=== PATIENT | female | born 1995 | race African-American/Black ===

== ENCOUNTER 2022-04-06 16:32 | Inpatient (IN) | payer OTHER, MEDICAID, SELFPAY ==
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
[2022-04-06 16:53] VITALS: BP 114/67; BP 132/78; PULSE 108; PULSE 115; RESP 18; TEMP 38.2; O2SAT 100; O2SAT 96; BMI 31.8
--- NOTE | 2022-04-06 17:08 | MHC.CARE ---
CARE Team spoke to N. Pt was seen in the community and made a bedsearch.
[2022-04-06] MEDS: Acetaminophen 325 MG TABLET 975 MG PO (18:00)
[2022-04-06] MEDS: Ondansetron ODT 4 MG TAB.RAPDIS TRANSLINGU (18:00)
[2022-04-06 18:04] LABS: MANUAL DIFF FLAG NO
[2022-04-06 18:08] LABS: Basophils Percent Auto 0.3 % (0-2); Eosinophils Absolute Auto 0.1 X10*3/uL (0.0-0.4); Hematocrit 34.2 % (37.0-47.0); Hemoglobin 11.1 g/dl (12.0-16.0); Imm Gran Abs Auto 0.02 X10*3/uL (0.00-0.03); Imm Gran Pct Auto 0.3 % (0.0-0.4); Lymphocytes Absolute Auto 0.6 X10*3/uL (1.2-4.9); Lymphocytes Percent Auto 7.6 % (20-40); Mean Corpuscular HGB Conc 32.5 g/dl (31.0-35.0); Mean Corpuscular Hemoglobin 25.9 pg (27.0-33.0); Mean Corpuscular Volume 79.9 fL (80.0-98.0); Mean Platelet Volume 10.4 fL (9.4-12.3); Monocytes Percent Auto 12.3 % (2-11); Neutrophils Absolute Auto 6.1 x10*3/uL (2.0-8.3); Neutrophils Percent Auto 78.5 % (45-73); Platelet Count 276 X10*3/uL (160-400); Red Blood Count 4.28 X10*6/uL (4.20-5.50); Red Cell Distribution Width 16.8 % (11.0-16.0); White Blood Count 7.8 X10*3/uL (4.8-10.8)
[2022-04-06 18:17] LABS: COVID-19 Test Positive (Negative); IDNOW Serial# 16C4AD1C
[2022-04-06 18:25] LABS: Acetaminophen LAB < 17 mcg/mL (<30); Alanine Aminotransferase 75 U/L (0-31); Albumin Level 3.7 g/dL (3.5-5.0); Alkaline Phosphatase 113 U/L (39-117); Anion Gap 13 (12-20); Aspartate Amino Transferase 34 U/L (5-31); Bilirubin Total 0.2 mg/dL (0.0-1.0); Blood Urea Nitrogen 9 mg/dL (9-16); Calcium 8.3 mg/dL (8.4-10.2); Carbon Dioxide 25 mmol/L (22-29); Chloride 100 mmol/L (96-108); Creatinine Clr Calc Pharmacy 140.2; Estimated Glomerular Filt Rate > 60; Ethanol < 10 mg/dL; Glucose Random 94 mg/dL (60-115); Potassium 4.1 mmol/L (3.3-5.1); Salicylate < 5.0 mg/dL (15-30); Sodium 134 mmol/L (135-145); Total Protein 6.3 g/dL (6.5-8.0)
[2022-04-06 21:56] LABS: Appearance Urine Cloudy; Color Urine Yellow; Glucose Urine UA Negative (Negative); Leukocyte Esterase Urine Trace (Negative); Nitrite Urine Negative (Negative); PH 8.5 (5.0-9.0); UMIC TRIGGER UACC YES; Urine Blood Negative (Negative); Urine Ketones Trace mg/dL (Negative); Urine Protein 30 (1+) mg/dL (Neg-Trace)
[2022-04-06 22:08] LABS: Amphetamine Screen Urine Not Detected (Not Detect); Barbiturates, Urine Not Detected (Not Detect); Benzodiazepines Screen Urine Not Detected (Not Detect); Cannabinoid Screen Urine POSITIVE (Not Detect); Cocaine Screen Urine POSITIVE (Not Detect); Fentanyl, urine POSITIVE (Not Detect); Opiate Screen Urine POSITIVE (Not Detect); Phencyclidine Screen Urine Not Detected (Not Detect)
[2022-04-06 22:13] LABS: Bacteria Urine 4+ (None Seen); Hyaline Casts Urine 0-2 /LPF (0-2); Squamous Epithelial Cell Urine >20 /HPF (0-2); WBC Urine 0-5 /HPF (0-5)
[2022-04-07 02:33] VITALS: BP 116/56; PULSE 84; RESP 16; TEMP 38.3; O2SAT 99
--- NOTE | 2022-04-07 07:25 | PC.NURSE ---
Report from Kenrick ZHOU, per report pt is an in-patient bedsearch. Currently pt appears to be sleeping, resp reg and even. NAD.
[2022-04-07 09:49] VITALS: BP 101/74; PULSE 89; TEMP 37.4; O2SAT 98
--- NOTE | 2022-04-07 10:14 | ECG_ITS ---
Test Reason : MEDICAL CLEARANCE Blood Pressure : / mmHG Vent. Rate : 090 BPM Atrial Rate : 090 BPM P-R Int : 130 ms QRS Dur : 080 ms QT Int : 346 ms P-R-T Axes : 057 057 064 degrees QTc Int : 423 ms Normal sinus rhythm Normal ECG No previous ECGs available Referred By: Nallely Peace Electronically Signed By:Andrew Lemus
--- NOTE | 2022-04-07 11:04 | PC.NURSE ---
Pt reports first covid test was while at the hospital this stay, states she has been experiencing GI upset, and fever/chills. Pt currently able to maintain compliance with isolation. Calm and cooperative.
--- NOTE | 2022-04-07 14:29 | PC.NURSE ---
Report given to Jomar ZHOU on the floor.
[2022-04-07 16:45] VITALS: BP 114/75; PULSE 81; RESP 16; TEMP 36.7; O2SAT 98
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
[2022-04-07] MEDS: Acetaminophen 325 MG TABLET 650 MG PO (20:51)
[2022-04-07] MEDS: traZODone HCL 50 MG TABLET PO (20:52)
[2022-04-07] MEDS: LORazepam 1 MG TABLET PO (20:52)
[2022-04-07] MEDS: hydrOXYzine HCL 25 MG TABLET PO (20:52)
[2022-04-07] MEDS: Dicyclomine HCl 10 MG CAPSULE PO (20:52)
[2022-04-07] MEDS: cloNIDine HCL 0.1 MG TABLET PO (20:52)
[2022-04-07 20:54] VITALS: BP 135/83; PULSE 94; TEMP 36.6; O2SAT 99
[2022-04-08 09:15] VITALS: BP 133/77; PULSE 77; RESP 18; TEMP 36.6; O2SAT 97
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
[2022-04-08 16:00] VITALS: PULSE 90
[2022-04-08] MEDS: LORazepam 1 MG TABLET PO ×2 (16:53→22:22)
[2022-04-08] MEDS: cloNIDine HCL 0.1 MG TABLET PO (16:53)
[2022-04-08 17:05] VITALS: BP 141/87; PULSE 90
[2022-04-08] MEDS: guaiFENesin DM 600/30 1 TAB TAB.ER.12H 2 TAB PO (20:20)
[2022-04-08] MEDS: Throat Lozenge, Medicated LOZENGE 1 LOZENGE MUCOUS MEM ×2 (20:20→22:22)
[2022-04-08] MEDS: Acetaminophen 325 MG TABLET 650 MG PO (20:20)
[2022-04-08] MEDS: Divalproex Sodium ER 500 MG TAB.ER.24H PO (21:14)
[2022-04-08] MEDS: traZODone HCL 50 MG TABLET PO ×2 (21:14→22:22)
[2022-04-08] MEDS: QUEtiapine Fumarate 400 MG TABLET PO (21:14)
[2022-04-08] MEDS: Ibuprofen 600 MG TABLET PO (21:15)
[2022-04-08 21:17] VITALS: BP 118/76; PULSE 89; TEMP 36.7; O2SAT 99
[2022-04-09 09:00] VITALS: BP 137/71; PULSE 81; RESP 18; TEMP 36.5; O2SAT 100
[2022-04-09] MEDS: Throat Lozenge, Medicated LOZENGE 1 LOZENGE MUCOUS MEM ×3 (09:03→21:11)
[2022-04-09] MEDS: guaiFENesin DM 600/30 1 TAB TAB.ER.12H 2 TAB PO ×2 (09:03→21:11)
[2022-04-09] MEDS: Ibuprofen 600 MG TABLET PO (09:04)
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
[2022-04-09] MEDS: Dicyclomine HCl 10 MG CAPSULE PO (12:01)
[2022-04-09] MEDS: LORazepam 1 MG TABLET PO (18:05)
[2022-04-09] MEDS: Divalproex Sodium ER 500 MG TAB.ER.24H PO (21:11)
[2022-04-09] MEDS: Acetaminophen 325 MG TABLET 650 MG PO (21:11)
[2022-04-09] MEDS: traZODone HCL 50 MG TABLET PO (21:11)
[2022-04-09] MEDS: QUEtiapine Fumarate 400 MG TABLET PO (21:11)
[2022-04-09 21:15] VITALS: PULSE 75
[2022-04-09 21:30] VITALS: BP 117/62; PULSE 75; RESP 16; TEMP 36.5; O2SAT 100
[2022-04-10 08:50] VITALS: BP 122/70; PULSE 76; RESP 18; TEMP 35.9; O2SAT 100
[2022-04-10 08:51] VITALS: PULSE 76
[2022-04-10] MEDS: Acetaminophen 325 MG TABLET 650 MG PO ×2 (09:00→20:50)
[2022-04-10] MEDS: guaiFENesin DM 600/30 1 TAB TAB.ER.12H 2 TAB PO ×2 (09:01→20:50)
[2022-04-10] MEDS: Nicotine 21 MG PATCH.TD24 TRANSDERMA (16:27)
[2022-04-10] MEDS: Nicotine Polacrilex 2 MG GUM 4 MG BUCCAL (16:27)
[2022-04-10] MEDS: LORazepam 1 MG TABLET PO ×2 (16:27→19:27)
--- NOTE | 2022-04-10 20:13 | P.PNPSI_ITS ---
Subjective Subjective Date of Service: 04/10/22 Reason For Visit: SI, Sec 12 per EMS Interim History: calm, cooperative. reports recently starting VPA in addition to her previously prescribed seroquel. she reports she has been on seroquel for a long time and the VPA was added for mood stabilization. adequate dosing discussed with pt, she agrees to increase dosing from 500 QHS to 1000 QHS. also c/o insomnia, VPA increase may help with that was explained to pt. per staff, anx/dep 8. med and meal compliant. isolated, bored. c/o aches and chills. no fever. slept well. Mental Status Exam Mental Status Exam Narrative: In bed. Appropriately dressed. Self care ok. Organized. Depressed. non-labile. no SI/HI/AVH expressed. No psychosis. Insight and judgment fair Diagnostics Vital Signs (24Hr): Vital Signs - 24 hr 04/09/22 21:30 04/10/22 08:50 Temperature 97.7 F 96.6 F L Pulse Rate 75 76 Respiratory Rate 16 18 Blood Pressure 117/62 122/70 Pulse Oximetry 100 100 Oxygen Delivery Method Room Air Room Air BMI result Body Mass Index 31.8 Labs 04/06/22 17:58 04/06/22 17:58 Medications Medications Current Medications Acetaminophen (Acetaminophen 325 Mg Tablet) 650 mg PO Q6H PRN PRN Reason: Headache/Pain Mild Scale (1-3) Last Admin: 04/10/22 09:00 Dose: 650 mg Al Hydroxide/Mg Hydroxide (Magnesium Hydrox/Alum Hydrox 30 Ml Oral.Susp) 30 ml PO Q6H PRN PRN Reason: Heartburn/Nausea Benzocaine (Throat Lozenge, Medicated Lozenge) 1 lozenge MUCOUS MEM Q2H PRN PRN Reason: Sore Throat Last Admin: 04/09/22 21:11 Dose: 1 lozenge Clonidine HCl (Clonidine Hcl 0.1 Mg Tablet) 0.1 mg PO Q2H PRN; Protocol PRN Reason: signs of opioid w/drawal Last Admin: 04/08/22 16:53 Dose: 0.1 mg Dicyclomine HCl (Dicyclomine Hcl 10 Mg Capsule) 10 mg PO Q4H PRN PRN Reason: cramping Last Admin: 04/09/22 12:01 Dose: 10 mg Divalproex Sodium (Divalproex Sodium Er 500 Mg Tab.Er.24h) 1,000 mg PO BEDTIME LESLIE Guaifenesin/Dextromethorphan (Guaifenesin Dm 600/30 1 Tab Tab.Er.12h) 2 tab PO BID PRN PRN Reason: Congestion Last Admin: 04/10/22 09:01 Dose: 2 tab Hydroxyzine HCl (Hydroxyzine Hcl 25 Mg Tablet) 25 mg PO Q6H PRN PRN Reason: Anxiety Last Admin: 04/07/22 20:52 Dose: 25 mg Ibuprofen (Ibuprofen 600 Mg Tablet) 600 mg PO Q6H PRN PRN Reason: aches Last Admin: 04/09/22 09:04 Dose: 600 mg Lorazepam (Lorazepam 1 Mg Tablet) 1 mg PO Q4H PRN PRN Reason: agitation/anxiety Last Admin: 04/10/22 19:27 Dose: 1 mg Magnesium Hydroxide (Milk Of Magnesia 30 Ml Oral.Susp) 30 ml PO DAILY PRN PRN Reason: Constipation Nicotine (Nicotine 21 Mg Patch.Td24) 21 mg TRANSDERMA DAILY [facility] Nicotine Polacrilex (Nicotine Polacrilex 2 Mg Gum) 4 mg BUCCAL Q2H PRN PRN Reason: Nicotine Cravings Last Admin: 04/10/22 16:27 Dose: 4 mg Quetiapine Fumarate (Quetiapine Fumarate 400 Mg Tablet) 400 mg PO BEDTIME LESLIE Last Admin: 04/09/22 21:11 Dose: 400 mg Trazodone HCl (Trazodone Hcl 50 Mg Tablet) 50 mg PO BEDTIME PRN PRN Reason: Insomnia Last Admin: 04/09/22 21:11 Dose: 50 mg Allergies Allergies Allergy/AdvReac Type Severity Reaction Status Date / Time No Known Allergies Allergy Verified 04/06/22 16:49 Assessment & Plan Assessment & Plan (1) Bipolar disorder current episode depressed: Status: Acute Code(s): F31.30 - Bipolar disorder, current episode depressed, mild or moderate severity, unspecified (2) Opioid dependence: Status: Acute Code(s): F11.20 - Opioid dependence, uncomplicated Plan Presents with worsening depression and SI and recent SA with co miorbid opioid dependence. Will restart seroquel 400hs and depakote 500hs and observe for withdrawals. Is interested in CSS when stable 04/09: no changes 04/10: increase VPA to 1000 mg at HS from 500 mg at HS. otherwise continue previous regimen. Reason for contiued inpatient stay Substantial Risk for: harm to self, inability to function and med/psych decompensation Time Spent With Patient Time: Total time managing care of this patient today __25__ minutes.
[2022-04-10 20:45] VITALS: BP 139/78; PULSE 93; RESP 16; TEMP 36.8; O2SAT 98
[2022-04-10] MEDS: traZODone HCL 50 MG TABLET PO (20:50)
[2022-04-10] MEDS: Divalproex Sodium ER 500 MG TAB.ER.24H 1000 MG PO (20:50)
[2022-04-10] MEDS: QUEtiapine Fumarate 400 MG TABLET PO (20:50)
[2022-04-10] MEDS: Throat Lozenge, Medicated LOZENGE 1 LOZENGE MUCOUS MEM (20:51)
[2022-04-11] MEDS: Nicotine 21 MG PATCH.TD24 TRANSDERMA (09:13)
[2022-04-11 09:27] VITALS: BP 108/67; PULSE 79; RESP 18; O2SAT 96
[2022-04-11] MEDS: buPROPion HCl XL 150 MG TAB.ER.24H PO (13:13)
--- NOTE | 2022-04-11 14:39 | HO.PSYCHPN ---
Subjective Subjective Date of Service: 04/11/22 Reason For Visit: SI, Sec 12 per EMS Interim History: pt in bed, interactive, however. soft spoken, mumbling. says she is depressed and is having SI kind of. reports slept better last night, but observes her arms felt like they had to keep moving. denies any such feeling in her legs or elsewhere in her body. states she has been on seroquel 400 for years and never had this problem. agreeable to give it another night with same regimen and see how it goes. asking for anti-depressant, agrees to wellbutrin start (r/b reviewed, including seizure, agitation, insomnia). no other complaints or requests. per staff, tearful about being on isolation. decreased appetite, napping a lot. appeared to sleep through the night. Mental Status Exam Mental Status Exam Narrative: In bed. Appropriately dressed. Self care ok. soft-spoken. Organized. Depressed. non-labile. SI kind of. no HI/AVH expressed. No psychosis. Insight and judgment fair Diagnostics Vital Signs (24Hr): Vital Signs - 24 hr 04/10/22 20:45 04/11/22 09:27 Temperature 98.2 F Pulse Rate 93 79 Respiratory Rate 16 18 Blood Pressure 139/78 108/67 Pulse Oximetry 98 96 Oxygen Delivery Method Room Air Room Air BMI result Body Mass Index 31.8 Labs 04/06/22 17:58 04/06/22 17:58 Medications Medications Current Medications Acetaminophen (Acetaminophen 325 Mg Tablet) 650 mg PO Q6H PRN PRN Reason: Headache/Pain Mild Scale (1-3) Last Admin: 04/10/22 20:50 Dose: 650 mg Al Hydroxide/Mg Hydroxide (Magnesium Hydrox/Alum Hydrox 30 Ml Oral.Susp) 30 ml PO Q6H PRN PRN Reason: Heartburn/Nausea Benzocaine (Throat Lozenge, Medicated Lozenge) 1 lozenge MUCOUS MEM Q2H PRN PRN Reason: Sore Throat Last Admin: 04/10/22 20:51 Dose: 1 lozenge Bupropion HCl (Bupropion Hcl Xl 150 Mg Tab.Er.24h) 150 mg PO DAILY LESLIE Last Admin: 04/11/22 13:13 Dose: 150 mg Clonidine HCl (Clonidine Hcl 0.1 Mg Tablet) 0.1 mg PO Q2H PRN; Protocol PRN Reason: signs of opioid w/drawal Last Admin: 04/08/22 16:53 Dose: 0.1 mg Dicyclomine HCl (Dicyclomine Hcl 10 Mg Capsule) 10 mg PO Q4H PRN PRN Reason: cramping Last Admin: 04/09/22 12:01 Dose: 10 mg Divalproex Sodium (Divalproex Sodium Er 500 Mg Tab.Er.24h) 1,000 mg PO BEDTIME LESLIE Last Admin: 04/10/22 20:50 Dose: 1,000 mg Guaifenesin/Dextromethorphan (Guaifenesin Dm 600/30 1 Tab Tab.Er.12h) 2 tab PO BID PRN PRN Reason: Congestion Last Admin: 04/10/22 20:50 Dose: 2 tab Hydroxyzine HCl (Hydroxyzine Hcl 25 Mg Tablet) 25 mg PO Q6H PRN PRN Reason: Anxiety Last Admin: 04/07/22 20:52 Dose: 25 mg Ibuprofen (Ibuprofen 600 Mg Tablet) 600 mg PO Q6H PRN PRN Reason: aches Last Admin: 04/09/22 09:04 Dose: 600 mg Lorazepam (Lorazepam 1 Mg Tablet) 1 mg PO Q4H PRN PRN Reason: agitation/anxiety Last Admin: 04/10/22 19:27 Dose: 1 mg Magnesium Hydroxide (Milk Of Magnesia 30 Ml Oral.Susp) 30 ml PO DAILY PRN PRN Reason: Constipation Nicotine (Nicotine 21 Mg Patch.Td24) 21 mg TRANSDERMA DAILY [facility] Last Admin: 04/11/22 09:13 Dose: 21 mg Nicotine Polacrilex (Nicotine Polacrilex 2 Mg Gum) 4 mg BUCCAL Q2H PRN PRN Reason: Nicotine Cravings Last Admin: 04/10/22 16:27 Dose: 4 mg Quetiapine Fumarate (Quetiapine Fumarate 400 Mg Tablet) 400 mg PO BEDTIME LESLIE Last Admin: 04/10/22 20:50 Dose: 400 mg Trazodone HCl (Trazodone Hcl 50 Mg Tablet) 50 mg PO BEDTIME PRN PRN Reason: Insomnia Last Admin: 04/10/22 20:50 Dose: 50 mg Allergies Allergies Allergy/AdvReac Type Severity Reaction Status Date / Time No Known Allergies Allergy Verified 04/06/22 16:49 Assessment & Plan Assessment & Plan (1) Bipolar disorder current episode depressed: Status: Acute Code(s): F31.30 - Bipolar disorder, current episode depressed, mild or moderate severity, unspecified (2) Opioid dependence: Status: Acute Code(s): F11.20 - Opioid dependence, uncomplicated Plan Presents with worsening depression and SI and recent SA with co miorbid opioid dependence. Will restart seroquel 400hs and depakote 500hs and observe for withdrawals. Is interested in CSS when stable 04/09: no changes 04/10: increase VPA to 1000 mg at HS from 500 mg at HS. otherwise continue previous regimen. 04/11: slept better but c/o sensation to move arms; none in legs and none with h/o seroquel. agreeable to keep regimen same for tonight and see how things go. start wellbutrin XL 150 daily for depression. Patient educated on: diagnosis and medication risk/benefits Reason for contiued inpatient stay Substantial Risk for: harm to self, inability to function and rapid decompensation Time Spent With Patient Time: Total time managing care of this patient today __25__ minutes.
[2022-04-11] MEDS: Acetaminophen 325 MG TABLET 650 MG PO (14:52)
[2022-04-11] MEDS: hydrOXYzine HCL 25 MG TABLET PO (14:52)
[2022-04-11] MEDS: Ibuprofen 600 MG TABLET PO (18:06)
[2022-04-11] MEDS: LORazepam 1 MG TABLET PO (18:06)
[2022-04-11] MEDS: QUEtiapine Fumarate 400 MG TABLET PO (21:05)
[2022-04-11] MEDS: Divalproex Sodium ER 500 MG TAB.ER.24H 1000 MG PO (21:05)
[2022-04-11] MEDS: traZODone HCL 50 MG TABLET PO (21:06)
[2022-04-11 21:25] VITALS: BP 138/75; PULSE 102; RESP 18; TEMP 36.8; O2SAT 97
[2022-04-12] MEDS: Nicotine 21 MG PATCH.TD24 TRANSDERMA (09:39)
[2022-04-12] MEDS: buPROPion HCl XL 150 MG TAB.ER.24H PO (09:39)
[2022-04-12 09:40] VITALS: BP 136/80; PULSE 91; RESP 16; TEMP 36.6; O2SAT 100
[2022-04-12] MEDS: Nicotine Polacrilex 2 MG GUM 4 MG BUCCAL (14:32)
--- NOTE | 2022-04-12 16:04 | HO.PSYCHPN ---
Subjective Subjective Date of Service: 04/12/22 Reason For Visit: SI, Sec 12 per EMS Interim History: calm, cooperative. poor eye contact. c/o anxiety and poor sleep. agrees to PRNs of clonidine and to have clonidine 0.2 mg scheduled for bedtime for insomnia and nightmares. per staff, c/o poor sleep. anxious and depressed. c/o back pain. c/o CARR[place], attributes it to crying last night. anx/dep 11. up at [place] for a while and then again at 0340 for a bit. interested in [facility]. Mental Status Exam Mental Status Exam Narrative: out and about on the unit. Appropriately dressed. Self care ok. soft-spoken. poor eye contac. PMR. Organized. Depressed. non-labile. no SI/HI/AVH expressed. No psychosis. Insight and judgment fair Diagnostics Vital Signs (24Hr): Vital Signs - 24 hr 04/11/22 21:25 04/12/22 09:40 Temperature 98.3 F 97.8 F Pulse Rate 102 H 91 Respiratory Rate 18 16 Blood Pressure 138/75 136/80 Pulse Oximetry 97 100 Oxygen Delivery Method Room Air Room Air BMI result Body Mass Index 31.8 Labs 04/06/22 17:58 04/06/22 17:58 Medications Medications Current Medications Acetaminophen (Acetaminophen 325 Mg Tablet) 650 mg PO Q6H PRN PRN Reason: Headache/Pain Mild Scale (1-3) Last Admin: 04/11/22 14:52 Dose: 650 mg Al Hydroxide/Mg Hydroxide (Magnesium Hydrox/Alum Hydrox 30 Ml Oral.Susp) 30 ml PO Q6H PRN PRN Reason: Heartburn/Nausea Benzocaine (Throat Lozenge, Medicated Lozenge) 1 lozenge MUCOUS MEM Q2H PRN PRN Reason: Sore Throat Last Admin: 04/10/22 20:51 Dose: 1 lozenge Bupropion HCl (Bupropion Hcl Xl 150 Mg Tab.Er.24h) 150 mg PO DAILY LESLIE Last Admin: 04/12/22 09:39 Dose: 150 mg Clonidine HCl (Clonidine Hcl 0.1 Mg Tablet) 0.1 mg PO Q2H PRN; Protocol PRN Reason: Anxiety Clonidine HCl (Clonidine Hcl 0.2 Mg Tablet) 0.2 mg PO BEDTIME LESLIE; Protocol Dicyclomine HCl (Dicyclomine Hcl 10 Mg Capsule) 10 mg PO Q4H PRN PRN Reason: cramping Last Admin: 04/09/22 12:01 Dose: 10 mg Divalproex Sodium (Divalproex Sodium Er 500 Mg Tab.Er.24h) 1,000 mg PO BEDTIME LESLIE Last Admin: 04/11/22 21:05 Dose: 1,000 mg Guaifenesin/Dextromethorphan (Guaifenesin Dm 600/30 1 Tab Tab.Er.12h) 2 tab PO BID PRN PRN Reason: Congestion Last Admin: 04/10/22 20:50 Dose: 2 tab Hydroxyzine HCl (Hydroxyzine Hcl 25 Mg Tablet) 25 mg PO Q6H PRN PRN Reason: Anxiety Last Admin: 04/11/22 14:52 Dose: 25 mg Ibuprofen (Ibuprofen 600 Mg Tablet) 600 mg PO Q6H PRN PRN Reason: aches Last Admin: 04/11/22 18:06 Dose: 600 mg Lorazepam (Lorazepam 1 Mg Tablet) 1 mg PO Q4H PRN PRN Reason: agitation/anxiety Last Admin: 04/11/22 18:06 Dose: 1 mg Magnesium Hydroxide (Milk Of Magnesia 30 Ml Oral.Susp) 30 ml PO DAILY PRN PRN Reason: Constipation Nicotine (Nicotine 21 Mg Patch.Td24) 21 mg TRANSDERMA DAILY [facility] Last Admin: 04/12/22 09:39 Dose: 21 mg Nicotine Polacrilex (Nicotine Polacrilex 2 Mg Gum) 4 mg BUCCAL Q2H PRN PRN Reason: Nicotine Cravings Last Admin: 04/12/22 14:32 Dose: 4 mg Quetiapine Fumarate (Quetiapine Fumarate 400 Mg Tablet) 400 mg PO BEDTIME [facility] Last Admin: 04/11/22 21:05 Dose: 200 mg Trazodone HCl (Trazodone Hcl 50 Mg Tablet) 50 mg PO BEDTIME PRN PRN Reason: Insomnia Last Admin: 04/11/22 21:06 Dose: 50 mg Allergies Allergies Allergy/AdvReac Type Severity Reaction Status Date / Time No Known Allergies Allergy Verified 04/06/22 16:49 Assessment & Plan Assessment & Plan (1) Bipolar disorder current episode depressed: Status: Acute Code(s): F31.30 - Bipolar disorder, current episode depressed, mild or moderate severity, unspecified (2) Opioid dependence: Status: Acute Code(s): F11.20 - Opioid dependence, uncomplicated Plan Presents with worsening depression and SI and recent SA with co miorbid opioid dependence. Will restart seroquel 400hs and depakote 500hs and observe for withdrawals. Is interested in CSS when stable 04/09: no changes 04/10: increase VPA to 1000 mg at HS from 500 mg at HS. otherwise continue previous regimen. 04/11: slept better but c/o sensation to move arms; none in legs and none with h/o seroquel. agreeable to keep regimen same for tonight and see how things go. start wellbutrin XL 150 daily for depression. 04/12: c/o poor sleep and anxiety during the day. out of bed, though, and visible in the milieu. agreeable to make use of clonidine PRNs and to start clonidine 0.2 mg QHS for help with anxiety, nightmares, and insomnia. Reason for contiued inpatient stay Substantial Risk for: harm to self, inability to function and rapid decompensation Time Spent With Patient Time: Total time managing care of this patient today __25__ minutes.
[2022-04-12] MEDS: LORazepam 1 MG TABLET PO ×2 (16:48→22:52)
[2022-04-12 20:00] VITALS: TEMP 37.3
[2022-04-12] MEDS: Ibuprofen 600 MG TABLET PO (20:02)
[2022-04-12] MEDS: Acetaminophen 325 MG TABLET 650 MG PO (22:51)
[2022-04-12] MEDS: Divalproex Sodium ER 500 MG TAB.ER.24H 1000 MG PO (22:52)
[2022-04-12] MEDS: traZODone HCL 50 MG TABLET PO (22:52)
[2022-04-12] MEDS: QUEtiapine Fumarate 400 MG TABLET PO (22:53)
[2022-04-12] MEDS: cloNIDine HCL 0.2 MG TABLET PO (22:53)
[2022-04-12 22:57] VITALS: BP 128/66; PULSE 100; TEMP 37.3; O2SAT 97
[2022-04-13 08:00] VITALS: BP 141/65; PULSE 75; RESP 18; TEMP 36.7; O2SAT 100
[2022-04-13] MEDS: buPROPion HCl XL 150 MG TAB.ER.24H PO (09:04)
[2022-04-13] MEDS: Nicotine 21 MG PATCH.TD24 TRANSDERMA (14:15)
--- NOTE | 2022-04-13 14:16 | HO.PSYCHPN ---
Subjective Subjective Date of Service: 04/13/22 Reason For Visit: SI, Sec 12 per EMS Interim History: asleep in bed, rousable to voice. irritable, dismissive. informed she may have a bed at [facility] today or tomorrow, responds she wanted justine, then says whatever. states, i'm a broken record regarding her complaints of anxiety and insomnia, by way of telling MD there is no point to our discussion. does say she took clonidine 0.2 mg at HS and is willing to increase to 0.3 mg if her BP will allow. per staff, no SI. no AVH. eating, napping. anx 9, dep 11. concerned she won't be able to stay clean when she discharges. Mental Status Exam Mental Status Exam Narrative: in bed asleep, easily rousable. Appropriately dressed. Self care ok. soft-spoken. poor eye contact. PMR. Organized. anxious. non-labile. no SI/HI/AVH expressed. No psychosis. Insight and judgment fair Diagnostics Vital Signs (24Hr): Vital Signs - 24 hr 04/12/22 20:00 04/12/22 22:57 04/13/22 08:00 Temperature 99.1 F 99.1 F 98.0 F Pulse Rate 100 75 Respiratory Rate 18 Blood Pressure 128/66 141/65 H Pulse Oximetry 97 100 Oxygen Delivery Method Room Air Room Air BMI result Body Mass Index 31.8 Labs 04/06/22 17:58 04/06/22 17:58 Medications Medications Current Medications Acetaminophen (Acetaminophen 325 Mg Tablet) 650 mg PO Q6H PRN PRN Reason: Headache/Pain Mild Scale (1-3) Last Admin: 04/12/22 22:51 Dose: 650 mg Al Hydroxide/Mg Hydroxide (Magnesium Hydrox/Alum Hydrox 30 Ml Oral.Susp) 30 ml PO Q6H PRN PRN Reason: Heartburn/Nausea Benzocaine (Throat Lozenge, Medicated Lozenge) 1 lozenge MUCOUS MEM Q2H PRN PRN Reason: Sore Throat Last Admin: 04/10/22 20:51 Dose: 1 lozenge Bupropion HCl (Bupropion Hcl Xl 150 Mg Tab.Er.24h) 150 mg PO DAILY LESLIE Last Admin: 04/13/22 09:04 Dose: 150 mg Clonidine HCl (Clonidine Hcl 0.1 Mg Tablet) 0.1 mg PO Q2H PRN; Protocol PRN Reason: Anxiety Clonidine HCl (Clonidine Hcl 0.2 Mg Tablet) 0.2 mg PO BEDTIME LESLIE; Protocol Last Admin: 04/12/22 22:53 Dose: 0.2 mg Dicyclomine HCl (Dicyclomine Hcl 10 Mg Capsule) 10 mg PO Q4H PRN PRN Reason: cramping Last Admin: 04/09/22 12:01 Dose: 10 mg Divalproex Sodium (Divalproex Sodium Er 500 Mg Tab.Er.24h) 1,000 mg PO BEDTIME LESLIE Last Admin: 04/12/22 22:52 Dose: 1,000 mg Guaifenesin/Dextromethorphan (Guaifenesin Dm 600/30 1 Tab Tab.Er.12h) 2 tab PO BID PRN PRN Reason: Congestion Last Admin: 04/10/22 20:50 Dose: 2 tab Hydroxyzine HCl (Hydroxyzine Hcl 25 Mg Tablet) 25 mg PO Q6H PRN PRN Reason: Anxiety Last Admin: 04/11/22 14:52 Dose: 25 mg Ibuprofen (Ibuprofen 600 Mg Tablet) 600 mg PO Q6H PRN PRN Reason: aches Last Admin: 04/12/22 20:02 Dose: 600 mg Lorazepam (Lorazepam 1 Mg Tablet) 1 mg PO Q4H PRN PRN Reason: agitation/anxiety Last Admin: 04/12/22 22:52 Dose: 1 mg Magnesium Hydroxide (Milk Of Magnesia 30 Ml Oral.Susp) 30 ml PO DAILY PRN PRN Reason: Constipation Nicotine (Nicotine 21 Mg Patch.Td24) 21 mg TRANSDERMA DAILY [facility] Last Admin: 04/12/22 09:39 Dose: 21 mg Nicotine Polacrilex (Nicotine Polacrilex 2 Mg Gum) 4 mg BUCCAL Q2H PRN PRN Reason: Nicotine Cravings Last Admin: 04/12/22 14:32 Dose: 4 mg Quetiapine Fumarate (Quetiapine Fumarate 400 Mg Tablet) 400 mg PO BEDTIME LESLIE Last Admin: 04/12/22 22:53 Dose: 400 mg Trazodone HCl (Trazodone Hcl 50 Mg Tablet) 50 mg PO BEDTIME PRN PRN Reason: Insomnia Last Admin: 04/12/22 22:52 Dose: 50 mg Allergies Allergies Allergy/AdvReac Type Severity Reaction Status Date / Time No Known Allergies Allergy Verified 04/06/22 16:49 Assessment & Plan Assessment & Plan (1) Bipolar disorder current episode depressed: Status: Acute Code(s): F31.30 - Bipolar disorder, current episode depressed, mild or moderate severity, unspecified (2) Opioid dependence: Status: Acute Code(s): F11.20 - Opioid dependence, uncomplicated Plan Presents with worsening depression and SI and recent SA with co miorbid opioid dependence. Will restart seroquel 400hs and depakote 500hs and observe for withdrawals. Is interested in CSS when stable 04/09: no changes 04/10: increase VPA to 1000 mg at HS from 500 mg at HS. otherwise continue previous regimen. 04/11: slept better but c/o sensation to move arms; none in legs and none with h/o seroquel. agreeable to keep regimen same for tonight and see how things go. start wellbutrin XL 150 daily for depression. 04/12: c/o poor sleep and anxiety during the day. out of bed, though, and visible in the milieu. agreeable to make use of clonidine PRNs and to start clonidine 0.2 mg QHS for help with anxiety, nightmares, and insomnia. 04/13: still anxikous, c/o poor sleep. increase HS clonidine to 0.3; still hypertensive. [facility] declined to take pt. pt signed 3-day notice. Reason for contiued inpatient stay Substantial Risk for: inability to function Time Spent With Patient Time: Total time managing care of this patient today __25__ minutes.
[2022-04-13] MEDS: LORazepam 0.5 MG TABLET PO ×2 (14:53→22:37)
[2022-04-13] MEDS: Nicotine Polacrilex 2 MG GUM 4 MG BUCCAL (20:15)
[2022-04-13 20:28] VITALS: BP 121/72; PULSE 108; RESP 19; TEMP 37; O2SAT 100
[2022-04-13] MEDS: cloNIDine HCL 0.1 MG TABLET 0.3 MG PO (21:00)
--- NOTE | 2022-04-13 21:18 | MHC.RECOVSUP ---
? Reason for consult:BOTH o? Current location:326-2? o? Identified substance use concern:? -? Seeking ATS (detox) -? Support ? Intervention:PT not seen ? Plan: o? Follow up tomorrow? ? Additional information:[facility] went up to see pt, was told the pt is on restriction and couldn't be seen. Follow up tomorrow.
[2022-04-13] MEDS: Divalproex Sodium ER 500 MG TAB.ER.24H 1000 MG PO (22:36)
[2022-04-13] MEDS: traZODone HCL 50 MG TABLET PO (22:37)
[2022-04-13] MEDS: Ibuprofen 600 MG TABLET PO (22:37)
[2022-04-13] MEDS: QUEtiapine Fumarate 400 MG TABLET PO (22:37)
[2022-04-13] MEDS: hydrOXYzine HCL 25 MG TABLET PO (22:37)
[2022-04-14] MEDS: Ibuprofen 600 MG TABLET PO (08:10)
[2022-04-14] MEDS: buPROPion HCl XL 150 MG TAB.ER.24H PO (08:10)
[2022-04-14 08:15] VITALS: BP 104/51; PULSE 86; RESP 18; TEMP 36.6; O2SAT 99
[2022-04-14] MEDS: LORazepam 0.5 MG TABLET PO (12:41)
--- NOTE | 2022-04-14 12:52 | PM.PSYDC ---
DS: Providers Provider Date of Service: 04/14/22 Date of admission: 04/07/22 15:33 Primary care physician: None Physician DS: Diagnosis Discharge Diagnosis (1) Bipolar disorder current episode depressed: Status: Acute (2) Opioid dependence: Status: Acute DS: Medications Discharge Medications Home Medications: Home Medications Medication Instructions Recorded Confirmed acyclovir 400 mg tablet 400 mg PO BID 04/07/22 04/07/22 hydroxyzine pamoate 50 mg PO Q6-8H PRN Anxiety 04/07/22 04/07/22 melatonin 9 mg PO BEDTIME 04/07/22 04/07/22 trazodone 100 mg tablet 100 mg PO BEDTIME 04/07/22 04/07/22 Previous Rx's Medication Instructions Recorded bupropion HCl 150 mg 24 hr tablet, 150 mg PO DAILY 30 days #30 tabs 04/14/22 extended release clonidine HCl 0.1 mg tablet 0.3 mg PO BEDTIME 30 days #90 tabs 04/14/22 divalproex 500 mg tablet,extended 1,000 mg PO BEDTIME 30 days #60 04/14/22 release 24 hr tabs nicotine (polacrilex) 2 mg buccal 2 mg buccal Q6H PRN nicotine 04/14/22 lozenge cravings 30 days #72 ea quetiapine 400 mg tablet 400 mg PO BEDTIME 30 days #30 tabs 04/14/22 Mental Status Exam Mental Status Exam Narrative: in bed asleep, easily rousable. Appropriately dressed. Self care ok. speech nml rate, amount, loudness, tone, latency. good eye contact. no PMA/PMR. Organized, linear. non-labile. mood really good. no SI/HI/AVH. No psychosis. Insight and judgment fair DS: Summary Hospital Course Hospital Course: per 04/09 admission note: Pt seen in isolated room as COVID positive- vitals stable and no symptoms. Limited engagement as pt reported feeling tired and some irritability. Endorses worsening depression, SI, recent overdose attempt with heroin (04/06/22), [place] the crisis involved then ED. Depressed, no motivation, no energy, poor sleep, SI. No psychosis. IV heroid use since 03/18 till 04/06/22. Homeless x 7 years and unclear recent changes/stressors. Discharged from [facility] within the last 1-2 weeks- depakote 500mg bedtime and seroquel 400mg bedtime.? Significant trauma history and bipolar disorder diagnosis.? Reports wanting to get stabilized and start a CSS Past Psychiatric History: Discharged from [facility] within the last 1-2 weeks- depakote 500mg bedtime and seroquel 400mg bedtime.? Unclear med trial history. Significant trauma history and bipolar disorder diagnosis. Reports jumping off a valery 01/06/22 (suicidal and intoxicated) and being admitted to [facility] after same Medical Evaluation Reviewed: Yes [facility] Social History: Homeless x 7 years. No legal issues Substance History: Heroin dependence. CSS 8 months ago with Mitul felix. Hx of 2 years sobriety Precis: Presents with worsening depression and SI and recent SA with comorbid opioid dependence. Will restart seroquel 400hs and depakote 500hs and observe for withdrawals. Is interested in CSS when stable 04/09: no changes 04/10: increase VPA to 1000 mg at HS from 500 mg at HS.? otherwise continue previous regimen. 04/11: slept better but c/o sensation to move arms; none in legs and none with h/o seroquel.? agreeable to keep regimen same for tonight and see how things go.? start wellbutrin XL 150 daily for depression. 04/12: c/o poor sleep and anxiety during the day.? out of bed, though, and visible in the milieu.? agreeable to make use of clonidine PRNs and to start clonidine 0.2 mg QHS for help with anxiety, nightmares, and insomnia. 04/13: still anxious, c/o poor sleep.? increase HS clonidine to 0.3; still hypertensive.? [facility] declined to take pt.? pt signed 3-day notice. 04/14: slept better, mood improved, brighter and more talkative. 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 appears genuinely hopeful and excited for the prospect. meds reviewed, reconciled, and prescribed. discharged today per pt preference. Time Spent with Patient Time attestation: Total time managing care of this patient today ____ minutes. Time spent: Greater than 30 minutes Discharge Plan Discharge Anticipated Discharge Date/Time: 01/20/23 12:41 Patient Disposition: Home, Self-Care Discharge Diagnosis: Bipolar I Disorder, MRE Depressed Referrals: Bertha Berkowitz (Psychiatry) [Other] - 04/18/22 11:30 am (IN OFFICE APPOINTMENT) [facility] [Provider Group] - 1 Week Discharge Medications: New clonidine HCl 0.1 mg Tablet 0.3 mg PO BEDTIME 30 Days Qty: 90 0RF Protocol: Hold for SBP< HOLD for SBP < : 90 divalproex 500 mg Tablet Extended Release 24 Hr 1,000 mg PO BEDTIME 30 Days Qty: 60 0RF bupropion HCl 150 mg Tablet Extended Release 24 Hr 150 mg PO DAILY 30 Days Qty: 30 0RF quetiapine 400 mg Tablet 400 mg PO BEDTIME 30 Days Qty: 30 0RF nicotine (polacrilex) 2 mg lozenge 2 mg buccal Q6H PRN (Reason: nicotine cravings) 30 Days Qty: 72 0RF Continued acyclovir 400 mg Tablet 400 mg PO BID trazodone 100 mg Tablet 100 mg PO BEDTIME hydroxyzine pamoate 50 mg PO Q6-8H PRN (Reason: Anxiety) melatonin 9 mg PO BEDTIME Discontinued Depakote ER 500 mg PO BEDTIME doxazosin 1 mg 1 mg PO BEDTIME gabapentin 400 mg PO TID quetiapine 400 mg PO BEDTIME quetiapine 50 mg PO BIDAC Discharge Orders: Discharge Order (Routine); Ordered 04/14/22 Ordered By: Constantino Weber Diet: Advance to usual diet Activity on Discharge: As tolerated Stand Alone Forms: Patient Portal Discharge page, Community Support Care Plan Goals: remain safe, stable, and sober in the outpatient treatment setting Health Concerns: none Plan of Treatment: take medications as prescribed, attend appointments as scheduled Assessment: not at imminent risk of harm to self or others Discharge Date/Time: 04/14/22 14:41
[2022-04-14 13:12] LABS: MANUAL DIFF FLAG NO
[2022-04-14 13:16] LABS: Basophils Percent Auto 0.3 % (0-2); Eosinophils Absolute Auto 0.2 X10*3/uL (0.0-0.4); Eosinophils Percent Auto 2.7 % (0-4); Hematocrit 42.2 % (37.0-47.0); Hemoglobin 13.4 g/dl (12.0-16.0); Imm Gran Abs Auto 0.02 X10*3/uL (0.00-0.03); Imm Gran Pct Auto 0.2 % (0.0-0.4); Lymphocytes Absolute Auto 3.3 X10*3/uL (1.2-4.9); Lymphocytes Percent Auto 36.2 % (20-40); Mean Corpuscular HGB Conc 31.8 g/dl (31.0-35.0); Mean Corpuscular Hemoglobin 26.1 pg (27.0-33.0); Mean Corpuscular Volume 82.3 fL (80.0-98.0); Monocytes Absolute Auto 0.8 X10*3/uL (0.1-1.2); Monocytes Percent Auto 8.8 % (2-11); Neutrophils Absolute Auto 4.6 x10*3/uL (2.0-8.3); Neutrophils Percent Auto 51.8 % (45-73); Platelet Count 375 X10*3/uL (160-400); Red Blood Count 5.13 X10*6/uL (4.20-5.50); Red Cell Distribution Width 16.3 % (11.0-16.0)
[2022-04-14 13:39] LABS: Appearance Urine Cloudy; Color Urine Dark Yellow; Glucose Urine UA Negative (Negative); Leukocyte Esterase Urine Negative (Negative); Nitrite Urine Negative (Negative); Specific Gravity - Urine >= 1.030 (1.005-1.025); Urine Blood Negative (Negative); Urine Ketones Trace mg/dL (Negative); Urine Protein Trace mg/dL (Neg-Trace)
[2022-04-14 14:10] LABS: Alanine Aminotransferase 12 U/L (0-31); Albumin Level 4.2 g/dL (3.5-5.0); Alkaline Phosphatase 115 U/L (39-117); Anion Gap 12 (12-20); Aspartate Amino Transferase 10 U/L (5-31); Bilirubin Direct < 0.2 mg/dL (0.0-0.5); Bilirubin Total 0.4 mg/dL (0.0-1.0); Blood Urea Nitrogen 13 mg/dL (9-16); Calcium 9.3 mg/dL (8.4-10.2); Carbon Dioxide 25 mmol/L (22-29); Chloride 104 mmol/L (96-108); Creatinine Clr Calc Pharmacy 112.5; Estimated Glomerular Filt Rate > 60; Glucose Random 89 mg/dL (60-115); Potassium 4.2 mmol/L (3.3-5.1); Sodium 137 mmol/L (135-145); Total Protein 7.5 g/dL (6.5-8.0)
--- NOTE | 2022-04-14 14:41 | PC.NURSE ---
Pt reports readiness for discharge she denies SI/HI/AH/VH. Discharge instructions were reviewed with Pt, she verbalized understanding of instructions, appointments and medications. Pt will be discharged home to family.
== END 2022-04-14 14:41 | disposition home or self-care (01) | DRG 753 ==
LOC: HO.ED 21:16 → HO.PADLT16 04-07 15:36
PROVIDERS: Physician Assistant; Admitting Provider Psychiatry & Neurology Psychiatry; Emergency Provider Internal Medicine; Visit Provider Psychiatry & Neurology Psychiatry
DX: F31.30 Bipolar disorder, current episode depressed, mild or moderate severity, unspecified (principal); U07.1 COVID-19; R45.851 Suicidal ideations; F11.20 Opioid dependence, uncomplicated; F17.210 Nicotine dependence, cigarettes, uncomplicated; Z59.02 Unsheltered homelessness; Z71.6 Tobacco abuse counseling; Z79.899 Other long term (current) drug therapy
CPT/HCPCS: 36415; 80048; 80053; 80076; 80143; 80164; 80179; 80307; 81001; 81003; 82077; 83735; 85025; 87635; 93005; 99285